=== PATIENT | male | born 2000 | race Caucasian/White ===

== ENCOUNTER 2020-01-04 20:27 | Emergency (ER) | payer MEDICAID ==
[~2020-01-04] VITALS: Ht 185.4 cm; Wt 104.9 kg
--- NOTE | 2020-01-04 21:10 | NUR ---
PT TO ROOM 22 PER PEDIS. PT C/O SORE THROAT AND UPPER RESP SYMPTOMS X2 DAYS. DENIES FEVER. REDDNESS TO BACK OF THROAT, NO PATCHES OR WHITE SPOTS NOTED. PT C/O BLISTERS ON LIPS AND TIP OF TONGUE. SMALL BLISTER TO RIGHT UPPER LIP, AND TIP OF TONGUE, NOT PUSTULES NOTED, RESEMBLES IF PT BIT LIP OR TONGUE WHILE CHEWING. 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
[2020-01-04 22:04] LABS: RAPID INFLUENZA A Negative (Negative)
[2020-01-04 22:05] LABS: RAPID INFLUENZA B Negative (Negative)
[2020-01-04 22:29] VITALS: BP 131/82
== END 2020-01-04 22:31 | disposition home or self-care (01) ==
LOC: ED 21:13
DX: B34.9 Viral infection, unspecified (principal); Z88.0 Allergy status to penicillin
CPT/HCPCS: 71046; 87081; 87400; 87486; 87581; 87633; 87798; 87880; 99284